=== PATIENT | female | born 1990 | race Two or more races ===

== ENCOUNTER 2021-01-20 11:06 | Day surgery (SDC) | payer OTHER | END 2021-01-21 02:00 | disposition home or self-care (01) | LOC: CIR.AMB 11:06 | PROVIDERS: ATTEND Obstetrics & Gynecology | DX: O02.1 Missed abortion (principal); Z20.822 Contact with and (suspected) exposure to COVID-19 ==

== ENCOUNTER 2021-08-13 15:25 | Outpatient (CLI) | payer OTHER | END 2021-08-13 17:01 | disposition home or self-care (01) | LOC: PRENATAL 15:25 | PROVIDERS: ATTEND Obstetrics & Gynecology Maternal & Fetal Medicine | DX: O35.0XX1 Maternal care for (suspected) central nervous system malformation in fetus, fetus 1 (principal); O35.3XX1 Maternal care for (suspected) damage to fetus from viral disease in mother, fetus 1; O98.512 Other viral diseases complicating pregnancy, second trimester; Z36.89 Encounter for other specified antenatal screening; Z3A.19 19 weeks gestation of pregnancy ==

== ENCOUNTER 2021-10-08 14:35 | Outpatient (CLI) | payer OTHER | END 2021-10-08 16:28 | disposition home or self-care (01) | LOC: PRENATAL 14:35 | PROVIDERS: ATTEND Obstetrics & Gynecology Maternal & Fetal Medicine | DX: O26.849 Uterine size-date discrepancy, unspecified trimester (principal) ==

== ENCOUNTER 2021-11-16 13:05 | Outpatient (CLI) | payer OTHER | END 2021-11-16 13:58 | disposition home or self-care (01) | LOC: PRENATAL 13:05 | PROVIDERS: ATTEND Obstetrics & Gynecology Maternal & Fetal Medicine | DX: O26.849 Uterine size-date discrepancy, unspecified trimester (principal); O43.90 Unspecified placental disorder, unspecified trimester; Z3A.34 34 weeks gestation of pregnancy ==

== ENCOUNTER 2021-11-24 20:40 | Inpatient (IN) | payer OTHER ==
[~2021-11-24] VITALS: Ht 170.2 cm; Wt 1.8 kg
[2021-11-25] MEDS ORDERED: PRENATAL + DHA1 EAC1 (09:06)
== END 2021-11-29 18:26 | disposition home or self-care (01) | DRG 805 ==
LOC: LDR 20:40 → OB/GYN 11-27 17:24
PROVIDERS: ADMIT Obstetrics & Gynecology; ATTEND Obstetrics & Gynecology
PROC: 4A1HXCZ Monitoring of Products of Conception, Cardiac Rate, External Approach (ICD-10-PCS; 2021-11-24)
PROC: BY4FZZZ Ultrasonography of Third Trimester, Single Fetus (ICD-10-PCS; 2021-11-25)
PROC: 10E0XZZ Delivery of Products of Conception, External Approach (ICD-10-PCS; principal; 2021-11-27)
DX: O42.013 Preterm premature rupture of membranes, onset of labor within 24 hours of rupture, third trimester (principal); O60.14X0 Preterm labor third trimester with preterm delivery third trimester, not applicable or unspecified; O36.8130 Decreased fetal movements, third trimester, not applicable or unspecified; Z37.0 Single live birth; Z3A.35 35 weeks gestation of pregnancy

== ENCOUNTER → 2023-08-10 | Emergency (ER) | payer OTHER ==
[~2023-08-10] VITALS: Ht 170.2 cm; Wt 59.0 kg
[~2023-08-10] MED LIST: MAXITROL EYE DRO5 ML OP; PRENATAL + DHA1 EAC1
== END | disposition home or self-care (01) ==
LOC: ER 09:57
DX: O99.891 Other specified diseases and conditions complicating pregnancy (principal); H10.89 Other conjunctivitis; Z3A.00 Weeks of gestation of pregnancy not specified